=== PATIENT | female | born 1965 | race Caucasian/White ===

== ENCOUNTER 2022-03-27 06:27 | Day surgery (SDC) | payer OTHER ==
[2022-03-27] MEDS ORDERED: Sodium Chloride 0.9% 1,000 ML IV SCH (06:30)
[2022-03-27] MEDS ORDERED: Propofol 200 MG/20 ML SDV ONE (07:17)
[2022-03-27] MEDS ORDERED: fentaNYL 50 MCG/ML SDV ONE (07:17)
[2022-03-27] MEDS ORDERED: Midazolam 1 MG/ML 2 ML SDV ONE (07:17)
== END 2022-03-27 09:45 | disposition home or self-care (01) ==
LOC: JP.SDS 06:27
PROVIDERS: ATTEND Surgery
DX: K31.A0 Gastric intestinal metaplasia, unspecified (principal); K29.70 Gastritis, unspecified, without bleeding; K21.9 Gastro-esophageal reflux disease without esophagitis; F41.9 Anxiety disorder, unspecified; E66.9 Obesity, unspecified; Z68.32 Body mass index [BMI] 32.0-32.9, adult; Z88.0 Allergy status to penicillin; Z88.1 Allergy status to other antibiotic agents; Z91.030 Bee allergy status; Z79.899 Other long term (current) drug therapy
CPT/HCPCS: 43239; J2250; J2704; J3010; J7030; 88305